=== PATIENT | male | born 1975 | race Hispanic/Latino ===

== ENCOUNTER 2016-10-11 21:07 | Emergency (ER) | payer BC ==
[2016-10-11 21:27] VITALS: BP 158/92; PULSE 91; RESP 17; TEMP 97.1; O2SAT 97
[2016-10-11] MEDS ORDERED: TDAP Vaccine 0.5 mL Syr IM ONE (22:28)
--- NOTE | 2016-10-11 22:34 | ED PDOC ---
HPI: Skin/Bite Injury Time Seen by Provider: 10/11/16 22:04 Chief Complaint (Nursing): Trauma Chief Complaint (Provider): Laceration History Per: Patient Additional Complaint(s): Pt is a 41 yo male, no PMH, presents to ED for evaluation of a laceration he sustained to his forehead ~ 2 hours [employer]. Pt reports that he slipped on ice and went head first into a pole. No LOC. No headache, dizziness, nausea or vomiting. Pt reports T.dap is not UTD Past Medical History Reviewed: Nursing Documentation, Vital Signs Vital Signs: Last Vital Signs Temp 97.1 F L 10/11/16 21:24 Pulse 91 H 10/11/16 21:24 Resp 17 10/11/16 21:24 BP 158/92 H 10/11/16 21:24 Pulse Ox 97 10/11/16 21:24 - Medical History PMH: No Chronic Diseases - Surgical History Surgical History: No Surg Hx - Family History Family History: States: Unknown Family Hx - Allergies Allergies/Adverse Reactions: Allergies Allergy/AdvReac Type Severity Reaction Status Date / Time tree and shrub pollen Allergy ITCHING Verified 10/11/16 21:24 Review of Systems ROS Statement: Except As Marked, All Systems Reviewed And Found Negative Skin: Positive for: Other (laceration) Physical Exam - Reviewed Nursing Documentation Reviewed: Yes Vital Signs Reviewed: Yes - Physical Exam Appears: Positive for: Well, Non-toxic, No Acute Distress Head Exam: Positive for: ATRAUMATIC, NORMAL INSPECTION, NORMOCEPHALIC Skin: Positive for: Normal Color, Warm, DRY Eye Exam: Positive for: EOMI, Normal appearance, PERRL ENT: Positive for: Normal ENT Inspection Neck: Positive for: Normal, Painless ROM Cardiovascular/Chest: Positive for: Regular Rate, Rhythm Respiratory: Positive for: CNT, Normal Breath Sounds Gastrointestinal/Abdominal: Positive for: Normal Exam, Bowel Sounds, Soft Back: Positive for: Normal Inspection Extremity: Positive for: Normal ROM Neurologic/Psych: Positive for: Alert, Oriented Comments: 3.5 cm vertical laceration to mid forehead, no active bleeding Mild surrounding edema, no ecchymosis. - ECG O2 Sat by Pulse Oximetry: 97 Medical Decision Making Medical Decision Making: Laceration dermabond repaired, as requested by Pt. Wound care discussed. Disposition - Clinical Impression Clinical Impression: Laceration - Patient ED Disposition Is Patient to be Admitted: No - Disposition Disposition: Routine/Home Disposition Time: 22:36 Condition: STABLE - POA Present On Arrival: Falls Or Trauma Laceration - Laceration Repair No standard instances Wound Length (In cm): 3 ft 6 in Description Of Wound: Linear Wound Cleansed With: Sterile Saline Wound Examination: Irrigated With Saline Wound Closure: Steri Strips, Skin Glue Wound Complexity: Simple
== END 2016-10-11 23:08 | disposition home or self-care (01) ==
LOC: H.ER 21:07
DX: S01.81XA Laceration without foreign body of other part of head, initial encounter (principal); W00.0XXA Fall on same level due to ice and snow, initial encounter; Y92.89 Other specified places as the place of occurrence of the external cause